=== PATIENT | female | born 1955 | race African-American/Black ===

== ENCOUNTER → 2020-07-06 | Day surgery (SDC) | payer MEDICARE ==
[~2020-07-06] MED LIST: AMLODIPINE BESYL5 MG PO; DEXAMETHASONE SOD PHOS INJ 4 MG/ML VIAL ONE; DIOVAN80 MG PO; EPHEDRINE SULFATE INJ 50 MG/ML VIAL ONE; FARXIGA5 MG PO; LIDOCAINE 2%/ EPINEPHRINE 20ML MDV ONE; LIDOCAINE HCL 2% LOCAL INJ 5 ML SDV VIAL INJ ONE; MUPIROCIN 2% OINT 22 GM TUBE ONE; ONDANSETRON HCL INJ 2MG/ML 2ML 2 MG/ML VIAL ONE; PROPOFOL IV EMULSION 10 MG/ML 20 ML VIAL ONE; SEVOFLURANE INHAL SOLN 250 ML PEN BTL ONE; VENLAFAXINE HCL75 MG PO; VITAMIN D3 PO
[2020-07-06 10:28] VITALS: BP 129/62
== END | disposition home or self-care (01) ==
LOC: OR 06:55
PROVIDERS: ATTEND Otolaryngology Otolaryngology/Facial Plastic Surgery
DX: M62.89 Other specified disorders of muscle (principal); I10 Essential (primary) hypertension; D46.9 Myelodysplastic syndrome, unspecified; F41.9 Anxiety disorder, unspecified; Z98.890 Other specified postprocedural states
CPT/HCPCS: 21556; 88305; 93005; J1100; J2001 ×2; J2405; J2704; 88304